=== PATIENT | male | born 1995 | race Caucasian/White ===

== ENCOUNTER 2017-07-22 23:56 | Emergency (ER) | payer MEDICAID ==
[~2017-07-22] VITALS: Ht 180.3 cm; Wt 80.0 kg
[2017-07-22 23:59] VITALS: Ht 180.3 cm; Wt 80.0 kg
[2017-07-23] MEDS ORDERED: LIDOCAINE 2% (MDV) 20 ML INJ INJ ONE (01:00)
[2017-07-23] MEDS ORDERED: CEPH-443 PO (01:52)
[2017-07-23] MEDS ORDERED: SULF1TAB31 PO (01:52)
--- NOTE | 2017-07-23 02:02 | ERD ---
ER Documentation Chief Complaint Date/Time DATE: 07/23/17 TIME: 01:56 Chief Complaint abscess to tail bone for a week HPI This is a 21-year-old male presents to the ER with an abscess to his tailbone that is been going on for the last week. Patient states that area became more painful and swollen and it is difficult for him to sit down. He has not had any fevers or chills. Today the area started draining, however still very large. ROS 12 point review of systems was done, all negative except per HPI. Medications Home Meds Active Scripts Sulfamethoxazole/Trimethoprim* (Bactrim Ds* Tablet) 1 Each Tablet, 1 TAB PO BID for 7 Days, #14 TAB Prov:JUANHANNYMYRON C 07/23/17 Cephalexin* (Keflex*) 500 Mg Capsule, 500 MG PO BID for 7 Days, CAP Prov:JUAN,MYRON C 07/23/17 Allergies Allergies: Coded Allergies: No Known Allergy (Unverified , 07/23/17) PMhx/Soc Medical and Surgical Hx: pt denies Medical Hx, pt denies Surgical Hx Physical Exam Vitals Vital Signs Date Time Temp Pulse Resp B/P Pulse Ox O2 Delivery O2 Flow Rate FiO2 07/22/17 23:59 98.5 82 16 137/68 95 Physical Exam GENERAL: The patient is well developed and appropriate for usual state of health , in no apparent distress. HEENT: Atraumatic. CHEST: Clear to auscultation bilaterally. There are no rales, wheezes or rhonchi. HEART: Regular rate and rhythm. No murmurs, clicks, rubs or gallops. ABDOMEN: Soft, nontender and nondistended. Good bowel sounds. No rebound or guarding. No gross peritonitis. No gross organomegaly or masses. No Rivas sign or McBurney point tenderness. BACK: No midline or flank tenderness. NEURO: Alert and oriented. SKIN: there is a 2cm * 3cm pilondial abscess Results 24 hrs Current Medications Medications (Trade) Dose Ordered Sig/Hung Route PRN Reason Start Time Stop Time Status Last Admin Dose Admin Lidocaine (Xylocaine 2% (Mdv) 20 ml) 20 ml ONCE ONCE INJ 07/23/17 01:00 07/23/17 01:01 DC Procedures/MDM Abscess Incision and Drainage with irrigation by me: Location: pilondial Anesthesia: Local 2% Lidocaine Technique: Irrigated. Disrupted loculations w/ instrumentation. This amount of purulent discharge came out. Packing: None Complications: Neurovascularly intact post procedure 48 hour wound check. Scar minimization instructions given. Patient's skin symptoms have stabilized while they have been evaluated in the department and are appropriate for outpatient care and work up. Exam and w/u not consistent w/ sepsis, deep space infection, or foreign body. Departure Diagnosis: Primary Impression: Abscess Condition: Stable Patient Instructions: Abscess, Incision And Drainage Additional Instructions: Return to this facility in 2 DAYS for a follow-up exam.Return sooner if your condition worsens. MYRON MARTINEZ Jul 23, 2017 02:02
== END 2017-07-23 02:00 | disposition home or self-care (01) ==
LOC: FTE 23:56
DX: L05.01 Pilonidal cyst with abscess (principal)
CPT/HCPCS: 10080; Z7502; Z7610

== ENCOUNTER 2017-07-25 08:31 | Emergency (ER) | payer MEDICAID ==
[~2017-07-25] VITALS: Ht 175.3 cm; Wt 80.3 kg
[~2017-07-25 08:31] MED LIST: CEPH-443 PO; SULF1TAB31 PO
[2017-07-25 08:33] VITALS: Ht 175.3 cm; Wt 80.3 kg
--- NOTE | 2017-07-25 09:06 | ERD ---
ER Documentation Chief Complaint Date/Time DATE: 07/25/17 TIME: 08:59 Chief Complaint wound check from abscess HPI Patient is a 21-year-old male who presents emergency department for concerns of a wound recheck. Patient was seen here on 07-23-17 for incision and drainage of his pilonidal cyst. Patient denies any symptoms at this time. Patient denies any fevers, chills, nausea, vomiting, redness, swelling, pain. Patient states he is able to sit without any difficulty. Patient is taking antibiotics as prescribed. Patient has no other concerns or complaints at this time. ROS All systems reviewed and are negative except as per history of present illness. Medications Home Meds Active Scripts Sulfamethoxazole/Trimethoprim* (Bactrim Ds* Tablet) 1 Each Tablet, 1 TAB PO BID for 7 Days, #14 TAB Prov:MYRON MARTINEZ 07/23/17 Cephalexin* (Keflex*) 500 Mg Capsule, 500 MG PO BID for 7 Days, CAP Prov:JUANMYRON C 07/23/17 Allergies Allergies: Coded Allergies: No Known Allergy (Unverified , 07/23/17) Physical Exam Vitals Vital Signs Date Time Temp Pulse Resp B/P Pulse Ox O2 Delivery O2 Flow Rate FiO2 07/25/17 08:33 97.5 54 20 123/56 97 Physical Exam GENERAL: Well-developed, well-nourished male. Appears in no acute distress. HEAD: Normocephalic, atraumatic. EYES: Pupils are equally reactive bilaterally. EOMs grossly intact. No conjunctival erythema. NECK: Supple. No meningismus. Normal range of motion of the neck. LUNG: Clear to auscultation bilaterally. No rhonchi, wheezing, rales or coarse breath sounds. HEART: Regular rate and rhythm. No murmurs, rubs or gallops. EXTREMITIES: Equal pulses bilaterally. No peripheral clubbing, cyanosis or edema. No unilateral leg swelling. NEUROLOGIC: Alert and oriented. Moving all four extremities without any difficulty. Normal speech. Steady gait. SKIN: Normal color. 1 cm improving pilonidal abscess with small opening noted. No warmth, no swelling, no erythema noted. No active drainage or discharge. Procedures/MDM MEDICAL DECISION MAKING: This is a 21-year-old male who presents for wound check for a pilonidal abscess which was drained earlier this week. Vital signs were reviewed. Patient is afebrile. The wound appears to be healing well with no concerns of worsening infection at this time. No wound drainage or wound dehiscence noted. Tetanus is up-to-date. Post-procedural wound care was discussed with the patient. PRESCRIPTIONS: Continue to take antibiotics as prescribed. Complete full course. DISCHARGE: At this time, the patient is stable for discharge and outpatient management. Post-procedural wound care was discussed with the patient. I have instructed the patient to promptly return to the ER for any new or worsening symptoms including increasing pain, fever, warmth, redness or swelling. The patient and/ or family expressed understanding of and agreement with this plan. All questions were answered. Home care instructions were provided. Departure Diagnosis: Primary Impression: Encounter for wound re-check Condition: Stable Patient Instructions: Wound Check, Lac F/U (No Infection) Referrals: COMMUNITY CLINICS YOU HAVE RECEIVED A MEDICAL SCREENING EXAM AND THE RESULTS INDICATE THAT YOU DO NOT HAVE A CONDITION THAT REQUIRES URGENT TREATMENT IN THE EMERGENCY DEPARTMENT. FURTHER EVALUATION AND TREATMENT OF YOUR CONDITION CAN WAIT UNTIL YOU ARE SEEN IN YOUR DOCTORS OFFICE WITHIN THE NEXT 1-2 DAYS. IT IS YOUR RESPONSIBILITY TO MAKE AN APPOINTMENT FOR FOLOW-UP CARE. IF YOU HAVE A PRIMARY DOCTOR --you should call your primary doctor and schedule an appointment IF YOU DO NOT HAVE A PRIMARY DOCTOR YOU CAN CALL OUR PHYSICIAN REFERRAL HOTLINE AT IF YOU CAN NOT AFFORD TO SEE A PHYSICIAN YOU CAN CHOSE FROM THE FOLLOWING [facility] [address] [facility]. [facility] [address] [facility] [facility] [address] [facility]. [facility] [address] [facility]. [facility] [address] [facility]. [facility]. [address] [facility]. [facility] YOU HAVE RECEIVED A MEDICAL SCREENING EXAM AND THE RESULTS INDICATE THAT YOU DO NOT HAVE A CONDITION THAT REQUIRES URGENT TREATMENT IN THE EMERGENCY DEPARTMENT. FURTHER EVALUATION AND TREATMENT OF YOUR CONDITION CAN WAIT UNTIL YOU ARE SEEN IN YOUR DOCTORS OFFICE WITHIN THE NEXT 1-2 DAYS. IT IS YOUR RESPONSIBILITY TO MAKE AN APPOINTMENT FOR FOLOW-UP CARE. IF YOU HAVE A PRIMARY DOCTOR --you should call your primary doctor and schedule and appointment IF YOU DO NOT HAVE A PRIMARY DOCTOR YOU CAN CALL OUR PHYSICIAN REFERRAL HOTLINE AT . IF YOU CAN NOT AFFORD TO SEE A PHYSICIAN YOU CAN CHOSE FROM THE FOLLOWING [facility] INSTITUTIONS: [facility] [address] [place] [address] [facility] [address] [place] [address] [facility] [address] [place] [address] Additional Instructions: Call your primary care doctor TOMORROW for an appointment during the next 1-2 days.See the doctor sooner or return here if your condition worsens before your appointment time. Continue antibiotics as prescribed. PHYLICIA COREA PA-C Jul 25, 2017 09:06
== END 2017-07-25 09:32 | disposition home or self-care (01) ==
LOC: FTE 08:31
DX: Z48.01 Encounter for change or removal of surgical wound dressing (principal)
CPT/HCPCS: 99281